=== PATIENT | male | born 1965 ===

== ENCOUNTER 2018-01-15 08:36 | Emergency (ER) | payer BC ==
[2018-01-15 08:48] VITALS: BP 105/72
--- NOTE | 2018-01-15 15:06 | UC ---
Zak Dowling Angela, scribed for Clarence Peralta MD on 01/15/18 at 0855 . General HPI - HPI Summary HPI Summary: This pt is a 52 y/o male presenting to [facility] c/o fever and body aches since yesterday. Pt additionally notes generalized weakness and runny nose. Pt states he had a fever max of 101F. He denies cough, sore throat, chest pain, abd pain, nausea, vomiting. Denies any PMHx or PSHx. Pt is a current smoker and occasional alcohol user. - History of Current Complaint Chief Complaint: UCGeneralIllness Stated Complaint: ACHY, FEVER Time Seen by Provider: 01/15/18 08:39 Hx Obtained From: Patient Onset/Duration: Lasting Hours, Still Present Timing: Constant Current Severity: Moderate Pain Intensity: 5 Pain Location at: body Character: aches Aggravating: nothing Alleviating: nothing Associated Signs & Symptoms: Positive: Fever, Weakness - generalized, Other - POS: body aches, runny nose. NEG: sore throat. Negative: Cough - Allergy/Home Medications Allergies/Adverse Reactions: Allergies Allergy/AdvReac Type Severity Reaction Status Date / Time No Known Allergies Allergy Verified 01/15/18 08:44 Home Medications: Home Medications D-Methorphan/PE/Acetaminophen [Theraflu Expressmax Cold-Cough] 30 ml PO Q8HR PRN 01/15/18 [History Confirmed 01/15/18] PMH/Surg Hx/FS Hx/Imm Hx Other Endocrine History: DENIES: diabetes Other Cardiovascular History: DENIES: HTN - Surgical History Surgical History: None - Family History Known Family History: Positive: Diabetes - Social History Alcohol Use: Rare Substance Use Type: None Smoking Status (MU): Heavy Every Day Tobacco Smoker Amount Used/How Often: 1ppd Review of Systems Constitutional: Fever Eyes: Negative ENT: Nasal Discharge, Other - NEG: sore throat Respiratory: Negative Cardiovascular: Negative Gastrointestinal: Negative Genitourinary: Negative Motor: Negative Neurovascular: Negative Musculoskeletal: Myalgia Neurological: Weakness - generalized Psychological: Negative All Other Systems Reviewed And Are Negative: Yes Physical Exam - Summary Physical Exam Summary: VITAL SIGNS: Reviewed. GENERAL: Patient is a well-developed and nourished male who is lying comfortable in the stretcher. Patient is not in any acute respiratory distress. HEAD AND FACE: Normocephalic. Positive for runny nose. EYES: PERRLA, EOMI x 2. EARS: Hearing grossly intact. MOUTH: Oropharynx within normal limits. NECK: Supple, trachea is midline, no adenopathy, no JVD, no carotid bruit. CHEST: Symmetric, no tenderness at palpation LUNGS: Clear to auscultation bilaterally. No wheezing or crackles. CVS: Regular rate and rhythm, S1 and S2 present, no murmurs or gallops appreciated. ABDOMEN: Soft, non-tender. Bowel sounds are normal. No abdominal abnormal pulsations. EXTREMITIES: Full ROM in all major joints, no edema, no cyanosis or clubbing. NEURO: Alert and oriented x 3. No acute neurological deficits. Speech is normal and follows commands. SKIN: Dry and warm Triage Information Reviewed: Yes Vital Signs: Initial Vital Signs Temp 98.5 F 01/15/18 08:45 Pulse 93 01/15/18 08:45 Resp 16 01/15/18 08:45 BP 105/72 01/15/18 08:45 Pulse Ox 95 01/15/18 08:45 Vital Signs Reviewed: Yes Course/Dx - Course Course Of Treatment: This pt is a 52 y/o male presenting to [facility] c/o fever and body aches since yesterday. Pt additionally notes generalized weakness and runny nose. Pt states he had a fever max of 101F. He denies cough, sore throat, chest pain, abd pain, nausea, vomiting. Denies any PMHx or PSHx. Pt is a current smoker and occasional alcohol user. Influenza A and B are both negative. I discussed all the findings and test results with the patient. Pt was instructed to return to the urgent care or go to ER immediately if any of the symptoms return or worsens. Plan of care was discussed with the patient and pt understands and agrees. All questions were answered to patient satisfaction. There were no further complaints or concerns. Pt will be discharged to home with follow up from PCP and a prescription for ibuprofen. Pt is hemodynamically stable, alert and oriented x3. - Differential Dx - Multi-Symptom Provider Diagnoses: Upper Respiratory Infection Discharge - Sign-Out/Discharge Documenting (check all that apply): Discharge - Discharge Plan Condition: Stable Disposition: HOME Prescriptions: Ibuprofen TAB* [Motrin TAB* 600 MG] 600 mg PO Q8H PRN #30 tab PRN Reason: Pain Patient Education Materials: Upper Respiratory Infection (DC) Referrals: Rekha Lucero NP [Primary Care Provider] - Additional Instructions: RETURN TO URGENT CARE OR THE ED FOR ANY WORSENING OR NEW SYMPTOMS. The documentation as recorded by the Zak hanson Angela accurately reflects the service I personally performed and the decisions made by Fabian gomez Walter, MD.
== END 2018-01-15 09:25 | disposition home or self-care (01) ==
LOC: UCEAST 08:36
DX: J06.9 Acute upper respiratory infection, unspecified (principal); F17.200 Nicotine dependence, unspecified, uncomplicated
CPT/HCPCS: 87502; 99202; G0463